=== PATIENT | female | born 1940 | race Caucasian/White ===

== ENCOUNTER → 2024-01-05 | Outpatient (REF) | payer MEDICARE, OTHER ==
[~2024-01-05] MED LIST: CLONIDINE HCL 0.1 MG TAB ONE; DIPHENHYDRAMINE HCL INJ 50 MG/ML VIAL ONE
== END ==
LOC: DX 11:25
PROVIDERS: ATTEND Internal Medicine Infectious Disease
DX: N39.0 Urinary tract infection, site not specified (principal)
CPT/HCPCS: 36569; J1200

== ENCOUNTER 2024-10-27 15:24 | Inpatient (IN) | payer MEDICARE, OTHER ==
[~2024-10-27] VITALS: Ht 175.3 cm; Wt 63.5 kg
[2024-10-27 15:57] VITALS: PULSE 91; RESP 19; TEMP 98
[2024-10-27 16:38] LABS: BASOPHILS % 0.6 % (0.0-1.0); EOSINOPHILS % 0.8 % (0.0-6.0); LYMPHOCYTES % 22.5 % (18.0-39.1); MONOCYTES % 10.2 % (4.4-11.3); NEUTROPHILS % 65.6 % (38.7-80.0); RED CELL DISTRIBUTION WIDTH 13.0 % (11.7-14.4)
[2024-10-27 17:00] LABS: EST GLOMERULAR FILTRATION RATE 40.0 ML/MIN (>=60)
[2024-10-27] MEDS ORDERED: HYDRALAZINE HCL 20 MG/ML VIAL IV PRN (17:15)
[2024-10-27] MEDS ORDERED: LIDOCAINE 4% PATCH TP PRN (17:15)
[2024-10-27] MEDS ORDERED: DEXTROSE 50% SYRINGE 50 ML IV PRN (17:15)
[2024-10-27] MEDS ORDERED: DOCUSATE SODIUM 100 MG CAP PO PRN (17:15)
[2024-10-27] MEDS ORDERED: ONDANSETRON HCL INJ 2MG/ML 2ML 2 MG/ML VIAL IV PRN (17:15)
[2024-10-27] MEDS ORDERED: SIMETHICONE 80 MG CHEW PO PRN (17:15)
[2024-10-27 17:25] VITALS: PULSE 81; RESP 19; O2SAT 95
[2024-10-27 20:00] VITALS: BP 138/72; PULSE 73; RESP 18; TEMP 98.4; O2SAT 99
[2024-10-27 20:05] VITALS: PULSE 73; RESP 18; O2SAT 99
[2024-10-27] MEDS: ACETAMINOPHEN 325 MG TAB PO PRN (22:20)
[2024-10-28] VITALS (8 sets, daily range): BP systolic 139–165; BP diastolic 61–81; PULSE 60–94; RESP 18; TEMP 97.5–98.1; O2SAT 96–100
[2024-10-28] MEDS: SODIUM CHLORIDE 0.9% 1000ML 1,000 ML IV SCH (02:12)
[2024-10-28] MEDS: POTASSIUM CHLORIDE 20MEQ/100ML 300 ML IV ONE (02:13)
[2024-10-28 05:22] LABS: BASOPHILS % 0.5 % (0.0-1.0); EOSINOPHILS % 2.6 % (0.0-6.0); LYMPHOCYTES % 32.6 % (18.0-39.1); MONOCYTES % 10.9 % (4.4-11.3); NEUTROPHILS % 53.1 % (38.7-80.0); RED CELL DISTRIBUTION WIDTH 13.1 % (11.7-14.4)
[2024-10-28 05:57] LABS: EST GLOMERULAR FILTRATION RATE 40.0 ML/MIN (>=60)
[2024-10-28 06:12] LABS: CHOL/HDL RATIO 4.0 (3.0-3.6); LDL CHOLESTEROL 119.0 MG/DL (60-130)
[2024-10-28] MEDS: POTASSIUM CHLORIDE 20 MEQ TAB CR PO PRN (06:47)
[2024-10-28] MEDS ORDERED: ELIQUIS5 MG PO (07:20)
[2024-10-28] MEDS ORDERED: METHENAMINE HIPP1 GM (07:20)
[2024-10-28] MEDS ORDERED: URSODIOL300 MG PO (07:20)
[2024-10-28] MEDS ORDERED: TIMOPTIC 0.5%1 EACH OU (07:20)
[2024-10-28] MEDS ORDERED: CLONIDINE HCL0.1 MG PO (07:20)
[2024-10-28] MEDS ORDERED: LATANOPROST2.5 ML OP (07:20)
[2024-10-28] MEDS: PANTOPRAZOLE SOD 40 MG TABEC PO SCH (07:30)
[2024-10-28] MEDS ORDERED: FUROSEMIDE INJ 10 MG/ML 2 ML VIAL IV SCH (10:30)
[2024-10-28] MEDS: POTASSIUM CHLORIDE 20 MEQ TAB CR PO ONE (11:43)
[2024-10-28] MEDS: POTASSIUM CHLORIDE 20MEQ/100ML 100 ML IV SCH (12:17)
[2024-10-28] MEDS: FUROSEMIDE INJ 10 MG/ML 2 ML VIAL IV SCH (14:34)
[2024-10-28] MEDS ORDERED: ENOXAPARIN SOD INJ 40 MG/0.4 ML SYR SC SCH (17:00)
[2024-10-28] MEDS: APIXABAN 5 MG TABLET PO SCH (17:25)
[2024-10-28] MEDS: ACETAMINOPHEN 325 MG TAB PO PRN (18:17)
[2024-10-28] MEDS: Doxycycline IV 100 MG in SODIUM CHLORIDE 0.9% 100 ML IV SCH (18:50)
[2024-10-28] MEDS: IPRATROPIUM BROMIDE 0.02% 2.5 ML NEB NEB SCH (23:00)
[2024-10-29] VITALS (11 sets, daily range): BP systolic 126–157; BP diastolic 67–85; PULSE 58–99; RESP 12–60; TEMP 97.5–98.3; O2SAT 97–100
[2024-10-29] MEDS: METOPROLOL SUCCINATE 25 MG TAB XL PO SCH (10:29)
[2024-10-29 11:14] LABS: EST GLOMERULAR FILTRATION RATE 48.0 ML/MIN (>=60)
[2024-10-29] MEDS: POTASSIUM CHLORIDE 20 MEQ TAB CR PO ONE (16:11)
[2024-10-29] MEDS: Doxycycline IV 100 MG in SODIUM CHLORIDE 0.9% 100 ML IV SCH (21:35)
[2024-10-30] VITALS (9 sets, daily range): BP systolic 141–162; BP diastolic 66–99; PULSE 60–75; RESP 16–18; TEMP 97.5–98.2; O2SAT 95–99
[2024-10-30 07:25] LABS: BASOPHILS % 0.8 % (0.0-1.0); EOSINOPHILS % 6.2 % (0.0-6.0); LYMPHOCYTES % 30.2 % (18.0-39.1); MONOCYTES % 9.2 % (4.4-11.3); NEUTROPHILS % 53.5 % (38.7-80.0); RED CELL DISTRIBUTION WIDTH 13.2 % (11.7-14.4)
[2024-10-30 07:54] LABS: EST GLOMERULAR FILTRATION RATE 48.0 ML/MIN (>=60)
[2024-10-30] MEDS: FUROSEMIDE 20 MG TAB PO SCH (09:33)
[2024-10-30] MEDS: DIPHENHYDRAMINE HCL 25 MG CAP PO PRN (13:24)
[2024-10-31] VITALS (7 sets, daily range): BP systolic 145–195; BP diastolic 71–88; PULSE 65–73; RESP 16–18; TEMP 97.7–98.6; O2SAT 94–99
[2024-10-31] MEDS: PREDNISONE 20 MG TAB PO ONE (14:00)
[2024-10-31 16:39] LABS: BASOPHILS % 0.6 % (0.0-1.0); EOSINOPHILS % 3.3 % (0.0-6.0); LYMPHOCYTES % 21.1 % (18.0-39.1); MONOCYTES % 3.6 % (4.4-11.3); NEUTROPHILS % 71.1 % (38.7-80.0); RED CELL DISTRIBUTION WIDTH 13.2 % (11.7-14.4)
[2024-10-31 16:56] LABS: EST GLOMERULAR FILTRATION RATE 39.0 ML/MIN (>=60)
[2024-10-31] MEDS: BENZONATATE 100 MG CAP PO PRN (21:21)
[2024-10-31] MEDS: ALBUTEROL/IPRATROPIUM 3 ML NEB NEB PRN (22:50)
[2024-11-01] VITALS (11 sets, daily range): BP systolic 137–172; BP diastolic 67–91; PULSE 60–85; RESP 16–18; TEMP 97.6–98.6; O2SAT 93–100
[2024-11-01] MEDS: MELATONIN 5 MG TABLET PO PRN (02:17)
[2024-11-01] MEDS ORDERED: ONDANSETRON HCL 4 MG ORAL DISINTEGRATING TAB PO PRN (07:15)
[2024-11-01] MEDS: PREDNISONE 20 MG TAB PO ONE (08:25)
[2024-11-02] VITALS (7 sets, daily range): BP systolic 137–174; BP diastolic 61–98; PULSE 67–85; RESP 16–20; TEMP 97.7–98.2; O2SAT 96–100
[2024-11-02] MEDS: AMLODIPINE BESYLATE 10 MG TAB PO SCH (11:27)
== END 2024-11-02 13:15 | disposition home or self-care (01) | DRG 602 ==
LOC: ER 16:28 → ERHOLD 16:30 → MED/SURG 18:24
PROVIDERS: ADMIT Internal Medicine; ATTEND Internal Medicine
PROC: 02HV33Z Insertion of Infusion Device into Superior Vena Cava, Percutaneous Approach (ICD-10-PCS; principal; 2024-10-28)
DX: L03.114 Cellulitis of left upper limb (principal); I50.33 Acute on chronic diastolic (congestive) heart failure; D68.51 Activated protein C resistance; I11.0 Hypertensive heart disease with heart failure; I87.2 Venous insufficiency (chronic) (peripheral); I49.5 Sick sinus syndrome; I48.0 Paroxysmal atrial fibrillation; E87.6 Hypokalemia; E03.9 Hypothyroidism, unspecified; M19.90 Unspecified osteoarthritis, unspecified site; J45.909 Unspecified asthma, uncomplicated; W55.03XA Scratched by cat, initial encounter; Z79.01 Long term (current) use of anticoagulants; Z95.0 Presence of cardiac pacemaker; Z86.718 Personal history of other venous thrombosis and embolism; Z90.49 Acquired absence of other specified parts of digestive tract; Z90.710 Acquired absence of both cervix and uterus; Z90.12 Acquired absence of left breast and nipple; Z91.041 Radiographic dye allergy status; Z88.2 Allergy status to sulfonamides; Z88.5 Allergy status to narcotic agent; Z88.1 Allergy status to other antibiotic agents; Z88.8 Allergy status to other drugs, medicaments and biological substances
CPT/HCPCS: 36415; 36568; 71045; 80048; 80053; 80061; 83036; 83735; 83880; 84132; 84443; 84484; 85025; 93005; 93306; 93970; 94640; 94799; 99284; J1938; J2405; J2470; J2543; J3480; J7030; J7050; J7512